=== PATIENT | female | born 1970 ===

== ENCOUNTER 2018-05-18 11:44 | Emergency (ER) | payer OTHER ==
[2018-05-18 11:55] VITALS: BMI 38.9
[2018-05-18 11:58] VITALS: O2SAT 98
[2018-05-18] MEDS ORDERED: Sodium Chloride 0.9% 1,000 ML IV ONE (12:39)
--- NOTE | 2018-05-18 13:03 | C.PDOC ---
History Of Present Illness 47 y/o female presents to ED for complaints of right sided abdominal pain that began 3 days ago. 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 Pain is digitally reproducible in right lower chest and abdomen. Denies any other physical complaints. Time Seen by Provider: 05/18/18 12:26 Chief Complaint (Nursing): Abdominal Pain History Per: Patient History/Exam Limitations: no limitations Onset/Duration Of Symptoms: Days (3) Current Symptoms Are (Timing): Still Present Radiation Of Pain To:: None Quality Of Discomfort: "Pain" Associated Symptoms: denies: Fever, Chills, Nausea, Vomiting, Diarrhea, Constipation Exacerbating Factors: None Alleviating Factors: None Last Bowel Movement: Today Abnormal Vaginal Bleeding: No Past Medical History Reviewed: Historical Data, Nursing Documentation, Vital Signs Vital Signs: Last Vital Signs Temp 98.0 F 05/18/18 15:40 Pulse 85 05/18/18 15:40 Resp 18 05/18/18 15:40 BP 145/85 05/18/18 15:40 Pulse Ox 98 05/18/18 15:54 - Medical History PMH: No Chronic Diseases Surgical History: No Surg Hx Family History: States: No Known Family Hx - Social History Hx Alcohol Use: No Hx Substance Use: No - Immunization History Hx Tetanus Toxoid Vaccination: No Hx Influenza Vaccination: No Hx Pneumococcal Vaccination: No Review Of Systems Constitutional: Negative for: Fever, Chills Gastrointestinal: Positive for: Abdominal Pain (Right sided ). Negative for: Nausea, Vomiting, Diarrhea Skin: Negative for: Rash Neurological: Negative for: Weakness, Numbness Physical Exam - Physical Exam Appears: Well, Non-toxic, No Acute Distress Skin: Warm, Dry, No Rash Head: Atraumatic, Normacephalic Eye(s): bilateral: Normal Inspection, PERRL, EOMI Nose: Normal, No Discharge Oral Mucosa: Moist Neck: Trachea Midline, No Midline Cervical Tenderness, No Paracervical Tenderness, Supple Chest: Symmetrical, Tenderness (Intercostal of right lower ribs/mid axillary line ) Cardiovascular: Rhythm Regular, No Murmur Respiratory: Normal Breath Sounds, No Decreased Breath Sounds, No Rales, No Rhonchi, No Wheezing Gastrointestinal/Abdominal: Soft, Tenderness (Right sided) Extremity: Normal ROM, No Deformity Extremity: Bilateral: Atraumatic, Normal Color And Temperature, Normal ROM Neurological/Psych: Oriented x3 (Awake and alert ), Normal Speech, Other (No focal deficits ) Gait: Steady ED Course And Treatment - Laboratory Results Result Diagrams: 05/18/18 13:08 05/18/18 13:54 Lab Interpretation: Normal (ua neg.) Urine POC: Negative O2 Sat by Pulse Oximetry: 98 (RA) Pulse Ox Interpretation: Normal - CT Scan/US CT Abdomen & Pelvis Other Rad Studies (CT/US): Read By Radiologist, Radiology Report Reviewed CT/US Interpretation: IMPRESSION: Unremarkable contrast enhanced CT of the abdomen and pelvis. Progress Note: ice pack to R ribs, toradol IV, IVF Reevaluation Time: 16:49 Reassessment Condition: Improved Medical Decision Making Medical Decision Making: Administered IV fluids and Toradol. Ordered blood work, urinalysis and CT abd&pelvis. 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 Disposition Doctor Will See Patient In The: Office Counseled Patient/Family Regarding: Studies Performed, Diagnosis - Disposition Disposition: HOME/ ROUTINE Disposition Time: 16:49 Condition: GOOD Forms: [employer] (Togolese) - Clinical Impression Clinical Impression: Rib pain on right side - Scribe Statement The provider has reviewed the documentation as recorded by the Scribe Nathan Smith All medical record entries made by the Scribe were at my direction and personally dictated by me. I have reviewed the chart and agree that the record accurately reflects my personal performance of the history, physical exam, medical decision making, and the department course for this patient. I have also personally directed, reviewed, and agree with the discharge instructions and disposition.
[2018-05-18] MEDS ORDERED: Sodium Chloride 0.9% 1,000 ML ONE (13:11)
[2018-05-18 13:12] LABS: BASO # 0.1 K/uL (0.0-0.2); BASO % 1.3 % (0.0-2.0); EOS # 0.2 K/uL (0.0-0.7); EOS % 2.1 % (0.0-4.0); HEMOGLOBIN 15.2 g/dL (11.0-16.0); LYMPH # 3.4 K/uL (1.0-4.3); LYMPH % 47.4 % (20.0-40.0); MEAN CELL VOLUME 85.5 fL (81.0-99.0); MEAN CORPUSCULAR HEMOGLOBIN 29.6 pg (27.0-31.0); MEAN CORPUSCULAR HGB CONC 34.6 g/dL (33.0-37.0); MEAN PLATELET VOLUME 9.2 fL (7.2-11.7); MONO # 0.5 K/uL (0.0-0.8); MONO % 6.6 % (0.0-10.0); NEUT % 42.6 % (50.0-75.0); RBC 5.12 Mil/uL (3.80-5.20); RED CELL DISTRIBUTION WIDTH 13.1 % (11.5-14.5); WHITE BLOOD COUNT 7.1 K/uL (4.8-10.8)
[2018-05-18 13:12] LABS: HCG,QUALITATIVE URINE NEGATIVE (NEGATIVE)
[2018-05-18 13:21] LABS: SQUAMOUS EPITHIAL 1 /hpf (0-5); URINE BACTERIA OCC (<OCC); URINE BILIRUBIN NEGATIVE (NEGATIVE); URINE BLOOD NEGATIVE (NEGATIVE); URINE CLARITY Clear (Clear); URINE COLOR Yellow (YELLOW); URINE GLUCOSE (UA) 3+ mg/dL (Normal); URINE LEUKOCYTE ESTERASE TRACE Leu/uL (Negative); URINE PROTEIN NEGATIVE (NEGATIVE); URINE UROBILINOGEN NORMAL mg/dL (0.2-1.0)
[2018-05-18 14:26] LABS: ALB/GLOB RATIO 1.4 (1.0-2.1); ALBUMIN 3.9 g/dL (3.5-5.0); ALT/SGPT 31 U/L (9-52); AST/SGOT 23 U/L (14-36); BLOOD UREA NITROGEN 11 mg/dL (7-17); CALCIUM 8.9 mg/dl (8.6-10.4); GFR AFRICAN-AMERICAN > 60; GFR NON-AFRICAN AMERICAN > 60; LIPASE 43 U/L (23-300)
[2018-05-18] MEDS ORDERED: Iodixanol 320 MG/ML 100 ML BOTTLE IV ONE (14:49)
--- NOTE | 2018-05-18 15:43 | CT ---
PROCEDURE: CT Abdomen and Pelvis with contrast HISTORY: Right flank pain COMPARISON: None. TECHNIQUE: Contrast dose: 100 cc Visipaque 320. Radiation dose: Total exam DLP = 1256.06 mGy-cm. This CT exam was performed using one or more of the following dose reduction techniques: Automated exposure control, adjustment of the mA and/or kV according to patient size, and/or use of iterative reconstruction technique. FINDINGS: LOWER THORAX: Unremarkable. LIVER: Unremarkable. No gross lesion or ductal dilatation. GALLBLADDER AND BILE DUCTS: Unremarkable. PANCREAS: Unremarkable. No gross lesion or ductal dilatation. SPLEEN: Unremarkable. ADRENALS: Unremarkable. No mass. KIDNEYS AND URETERS: Unremarkable. No hydronephrosis. No solid mass. VASCULATURE: Unremarkable. No aortic aneurysm. BOWEL: Unremarkable. No obstruction. No gross mural thickening. APPENDIX: Normal appendix. PERITONEUM: Unremarkable. No free fluid. No free air. LYMPH NODES: Unremarkable. No enlarged lymph nodes. BLADDER: Unremarkable. REPRODUCTIVE: Unremarkable. BONES: No acute fracture. OTHER FINDINGS: None. IMPRESSION: Unremarkable contrast enhanced CT of the abdomen and pelvis.
[2018-05-18 17:17] VITALS: BP 143/80; PULSE 87; RESP 17; TEMP 98.8
== END 2018-05-18 17:16 | disposition home or self-care (01) ==
LOC: C.ER 11:44
DX: R07.81 Pleurodynia (principal)
CPT/HCPCS: 74177; 80053; 81001; 83690; 84703; 85025; 96361; 96374; 99285; J1885; J7030; Q9967